=== PATIENT | male | born 1995 | race Caucasian/White ===

== ENCOUNTER 2017-04-15 11:01 | Emergency (ER) | payer BC ==
--- NOTE | 2017-04-15 11:07 | UC ---
Back Pain HPI - HPI Summary HPI Summary: 22 YEAR OLD MALE PRESENTS WITH COMPLAINS OF BACK PAIN WHILE WORKING AT A [employer]. - History of Current Complaint Stated Complaint: BACK PAIN Time Seen by Provider: 04/15/17 11:06 Hx Obtained From: Patient Onset/Duration: Gradual Onset Timing: Intermittent Severity Initially: Moderate Severity Currently: Moderate Pain Scale Used: 0-10 Numeric - 5 Back Pain: Is Diffuse Character: Sharp - Allergies/Home Medications Allergies/Adverse Reactions: Allergies Allergy/AdvReac Type Severity Reaction Status Date / Time Amoxicillin Allergy Rash Verified 04/15/17 11:13 Home Medications: Home Medications Cetirizine* [ZyrTEC 10 MG TAB*] 10 mg PO DAILY 04/15/17 [History Confirmed 04/15] PMH/Surg Hx/FS Hx/Imm Hx Previously Healthy: Yes Review of Systems Constitutional: Negative Skin: Negative Eyes: Negative ENT: Negative Respiratory: Negative Cardiovascular: Negative Gastrointestinal: Negative Genitourinary: Negative Motor: Negative Neurovascular: Negative Musculoskeletal: Other: - LOWER BACK PAIN Neurological: Negative Psychological: Negative All Other Systems Reviewed And Are Negative: Yes Physical Exam Triage Information Reviewed: Yes Vital Signs Reviewed: Yes Eye Exam: Normal ENT Exam: Normal Dental Exam: Normal Neck exam: Normal Neck: Positive: 1 Respiratory Exam: Normal Cardiovascular Exam: Normal Abdominal Exam: Normal Musculoskeletal: Positive: Other: - LOWER BACK PAIN L > R L SI JOINT PAIN Neurological Exam: Normal Psychological Exam: Normal Skin Exam: Normal Back Pain Course/Dx - Differential Dx/Diagnosis Provider Diagnoses: LOWER BACK PAIN L SI JOINT PAIN Discharge - Discharge Plan Condition: Stable Disposition: HOME Prescriptions: Ibuprofen TAB* [Motrin TAB* 800 MG] 800 mg PO Q8H PRN #30 tab PRN Reason: Spasms - Back Methocarbamol TAB* [Robaxin 500 MG TAB*] 500 mg PO TID PRN #30 tab PRN Reason: Spasms - Back Patient Education Materials: Sacroiliitis (ED), Back Pain (ED), Lower Back Exercises (ED) Referrals: Livia Stout MD [Primary Care Provider] -
[2017-04-15 11:13] VITALS: BP 107/60
== END 2017-04-15 11:53 | disposition home or self-care (01) ==
LOC: UCEAST 11:01
DX: M54.5 Low back pain (principal); M53.3 Sacrococcygeal disorders, not elsewhere classified; Z88.3 Allergy status to other anti-infective agents
CPT/HCPCS: 99202; G0463